=== PATIENT | male | born 1960 | race Caucasian/White ===

== ENCOUNTER 2023-12-27 08:29 | Emergency (ER) | payer MEDICARE, MEDICAID, SELFPAY ==
[2023-12-27] VITALS (25 sets, daily range): BP systolic 130–164; BP diastolic 80–113; PULSE 75–102; TEMP 36.9; O2SAT 93–98; BMI 25.8
--- NOTE | 2023-12-27 09:02 | XR_ITS ---
The [address] [address] Patient Name: ANDRE DEL VALLE MRN: [id number] date: 1960 Sex: M Assigned Patient Location: ER Current Patient Location: ER Accession/Order Number: [id number] Exam Date: 12/27/2023 09:12 Report Date: 12/27/2023 09:40 At the request of: LIZBETH GONZALEZ Procedure: XR chest 1V EXAM: XR chest 1V HISTORY: . cough . COMPARISON: 02/15/2016 TECHNIQUE: Single view of the chest. FINDINGS: Heart and vascularity are unremarkable. Right lung is unremarkable. There is slight increased density in the left lung base. No consolidation is noted. Left upper lobe is unremarkable. Median sternotomy sutures are noted. EKG leads overlie the chest. XR/XR chest 1V Impression: Slight increased density in the left lung base which could represent atelectasis or an early infiltrate. No consolidation noted. Electronically authenticated by: FARRAH SHELL Date: 12/27/2023 09:40
--- NOTE | 2023-12-27 09:09 | ECG_ITS ---
The [facility] Test Date: 2023-12-27 Pat Name: ANDRE DEL VALLE Department: Room: - Gender: Male [employer] Installer: : 1960 Requested By: [id number] Order Number: [id number] Reading MD: DEVI NIEVES Measurements Intervals [place] Rate: 92 P: 7 CT: 164 QRS: 8 QRSD: 94 T: 22 QT: 358 QTc: 408 Interpretive Statements 1100 Sinus rhythm 2440 Incomplete right bundle branch block [address] depression 9130 borderline ECG No previous ECG available for comparison Electronically Signed On 12-27-2023 22:38:21 EDT by DEVI NIEVES
--- NOTE | 2023-12-27 09:09 | ED.GENADUL1 ---
HPI HPI - General Adult General Chief complaint: Abdominal Pain Stated complaint: SOB Time Seen by Provider: 12/27/23 08:57 Source: patient and family Mode of arrival: walk-in Limitations: no limitations History of Present Illness HPI narrative: The patient presented to us with a 1 week history of coughing productive of greenish sputum, he denies any history of smoking he also denies any nausea vomiting or any decreased p.o. intake, patient mentioned also that he has been having constipation for the last 3 days, complaining of lower abdominal pain mostly whenever he is moving or coughing The patient denies any fever or chills at the moment he also denies any chest pain although he does have some chest pain with coughing Patient also denies any runny nose and any sore throat and he does not want to be tested for COVID-19 Patient has been trying only cough drops for the last few days Related Data Previous Rx's ?Medication ?Instructions ?Recorded acetaminophen 650 mg 650 mg PO Q8H PRN pain #20 tabs 12/27/23 tablet,extended release (Tylenol 8 Hour) azithromycin 250 mg tablet See Rx Instructions PO .COMPLEX #6 12/27/23 tabs cephalexin 500 mg capsule 500 mg PO TID 7 days #21 caps 12/27/23 guaifenesin 600 mg tablet, 600 mg PO BID PRN cough #10 tabs 12/27/23 extended release 12 hr (Mucinex) Allergies Allergy/AdvReac Type Severity Reaction Status Date / Time No Known Drug Allergies Allergy Verified 12/27/23 08:49 Opioid HPI Opioid Management Most Recent Opioid Data: No Data to Display Review of Systems ROS Status of ROS 10 or more systems reviewed and unremarkable except as noted in history and below PFSH PFSH Social History Little interest or pleasure in doing things: not at all Feeling down, depressed, or hopeless: not at all Exam Narrative Exam Narrative: Nurses notes and vital signs reviewed and patient is not hypoxic. General: Well-appearing and in no apparent distress. Skin: Warm, dry, no pallor noted. No rash. Head: Normocephalic, atraumatic. Neck: Supple, non-tender. Eye: Pupils are equal, round and EOMI. No scleral icterus. Ears, Nose, Mouth, and Throat: TM are clear, no nasal mucosal hypertrophy. Oral mucosa is moist, no posterior oropharynx erythema, uvula is mid-line Cardiovascular: Regular Rate and Rhythm without murmur, gallop or rub. Respiratory: No accessory muscle use or respiratory distress. Lungs are clear to auscultation, no wheezing, rales or rhonchi Chest Wall: no tenderness Back: No midline thoracic or lumbar vertebral tenderness. No CVA tenderness Musculoskeletal: normal ROM, no calf or popliteal tenderness, no lower extremity edema/swelling GI: Abdomen is soft, non-distended. Normal bowel sounds. No masses appreciated. No tenderness to palpation. No rebound, guarding, or rigidity noted. Neurological: A&O x4. No cranial nerve dysfunction observed. No truncal ataxia. Moves all extremities. Sensation intact. Psychiatric: Cooperative and interactive. Normal mood and affect. Constitutional Vital Signs, click to edit/add: Last Vital Signs Temp 98.4 F 12/27/23 08:46 Pulse 87 12/27/23 09:10 Resp 18 12/27/23 09:10 BP 155/85 H 12/27/23 08:49 Pulse Ox 98 12/27/23 09:18 O2 Del Method Room Air 12/27/23 09:18 Course Vital Signs Vital signs: Vital Signs Temperature 98.4 F 12/27/23 08:46 Pulse Rate 94 H 12/27/23 08:46 Respiratory Rate 20 12/27/23 08:46 Blood Pressure 164/113 H 12/27/23 08:46 Pulse Oximetry 95 12/27/23 08:46 Oxygen Delivery Method Room Air 12/27/23 08:46 Temperature 98.4 F 12/27/23 08:46 Pulse Rate 87 12/27/23 09:10 Respiratory Rate 18 12/27/23 09:10 Blood Pressure 155/85 H 12/27/23 08:49 Pulse Oximetry 98 12/27/23 09:18 Oxygen Delivery Method Room Air 12/27/23 09:18 Medical Decision Making [facility] Narrative Medical decision making narrative: The patient CBC and chemistry showed no acute significant pathology The patient EKG showing sinus rhythm with a heart rate of [address] elevation or depression CAT scan of the abdomen pelvis showed no acute pathology and his chest x-ray shows possible infiltrate which is mostly secondary to pneumonia at the patient is presenting with possible pneumonia at the main diagnosis The patient pain in the abdomen mostly secondary to musculoskeletal as he mentioned it is associated with coughing The patient was treated in the ER with azithromycin started Mucinex as well as azithromycin and Keflex to go home The patient is to follow up with primary care physician in next 2-3 days or to return to the emergency department should any of the signs or symptoms worsen or new symptoms develop. The patient agrees with the following Diagnosis and Treatment plan and the patient will be discharged home. Lab Data Labs: Lab Results 12/27/23 Range/Units 08:57 WBC 9.0 (4.0-11.0) 10^3/uL RBC 4.87 (4.70-6.10) 10^6/uL Hgb 14.7 (14.0-18.0) g/dL Hct 43.2 (42.0-54.0) % MCV 88.7 (80.0-94.0) fL MCH 30.2 (25.9-34.0) pg MCHC 34.0 (29.9-35.2) g/dL RDW 12.7 (11.0-15.0) % Plt Count 224 (150-450) 10^3/uL MPV 9.3 L (9.5-13.5) fL Neut % (Auto) 65.0 (43.0-75.0) % Lymph % (Auto) 19.0 L (20.5-60.0) % [place] % (Auto) 10.6 (1.7-12.0) % Eos % (Auto) 4.6 (0.9-7.0) % Baso % (Auto) 0.6 (0.2-2.0) % Neut # (Auto) 5.8 (1.4-6.5) 10^3/uL Lymph # (Auto) 1.7 (1.2-3.8) 10^3/uL [place] # (Auto) 1.0 H (0.3-0.8) 10^3/uL Eos # (Auto) 0.4 (0.0-0.7) 10^3/uL Baso # (Auto) 0.1 (0.0-0.1) 10^3/uL Abs Immat Gran (auto) 0.02 (0.00-0.03) 10^3/uL Imm/Tot Granulo (auto) 0.2 (0.0-0.5) % Sodium 136 (136-145) mmol/L Potassium 3.4 L (3.5-5.1) mmol/L Chloride 101 (98-107) mmol/L Carbon Dioxide 26.5 (21.0-32.0) mmol/L Anion Gap 11.9 BUN 20.0 H (7.0-18.0) mg/dL Creatinine 1.17 (0.70-1.30) mg/dL Est GFR ( Amer) >60 (>=60) Est GFR (Non-Af Amer) >60 (>=60) BUN/Creatinine Ratio 17.1 Glucose 120 H (74-106) mg/dL Calcium 9.1 (8.5-10.1) mg/dL Total Bilirubin 0.9 (0.2-1.0) mg/dL AST 29 (15-37) U/L ALT 34 (16-63) U/L Alkaline Phosphatase 102 (46-116) U/L Total Protein 8.0 (6.4-8.2) g/dL Albumin 3.7 (3.4-5.0) g/dL Globulin 4.3 g/dL Albumin/Globulin Ratio 0.9 Discharge Plan Discharge Chief Complaint: Abdominal Pain Clinical Impression: Abdominal wall pain Pneumonia Qualifiers: Pneumonia type: due to unspecified organism Laterality: left Lung location: unspecified part of lung Qualified Code(s): J18.9 - Pneumonia, unspecified organism Patient Disposition: Home, Self-Care Time of Disposition Decision: 10:48 Condition: Good Prescriptions / Home Meds: New cephalexin 500 mg capsule 500 mg PO TID 7 Days Qty: 21 0RF azithromycin 250 mg tablet See Rx Instructions .ROUTE .COMPLEX Qty: 6 0RF Rx Instructions: For 250 mg dose pack: take 500 mg today (day 1), then 250 mg for 4 days (days 2-5) acetaminophen [Tylenol 8 Hour] 650 mg tablet extended release 650 mg PO Q8H PRN (Reason: pain) Qty: 20 0RF guaifenesin [Mucinex] 600 mg tablet extended release 12hr 600 mg PO BID PRN (Reason: cough) Qty: 10 0RF Print Language: Green[place]ic Instructions: Community Acquired Pneumonia (DC), Abdominal Pain (ED) Referrals: Physician,Non-Staff, MD [Primary Care Provider] - 1 week
[2023-12-27] MEDS: IPRATROPIUM/ALBUTEROL SULFATE 3 ML AMPUL.NEB IH (09:17)
[2023-12-27 09:27] LABS: Basophils Absolute Auto 0.1 10^3/uL (0.0-0.1); Basophils Percent Auto 0.6 % (0.2-2.0); Eosinophils Absolute Auto 0.4 10^3/uL (0.0-0.7); Eosinophils Percent Auto 4.6 % (0.9-7.0); Hematocrit 43.2 % (42.0-54.0); Hemoglobin 14.7 g/dL (14.0-18.0); Immature Granulocytes Abs Auto 0.02 10^3/uL (0.00-0.03); Immature Granulocytes Pct Auto 0.2 % (0.0-0.5); Lymphocytes Absolute Auto 1.7 10^3/uL (1.2-3.8); Mean Corpuscular Hemoglobin 30.2 pg (25.9-34.0); Mean Corpuscular Volume 88.7 fL (80.0-94.0); Mean Platelet Volume 9.3 fL (9.5-13.5); Monocytes Percent Auto 10.6 % (1.7-12.0); Neutrophils Absolute Auto 5.8 10^3/uL (1.4-6.5); Platelet Count 224 10^3/uL (150-450); Red Blood Count 4.87 10^6/uL (4.70-6.10); Red Cell Distribution Width 12.7 % (11.0-15.0)
[2023-12-27] MEDS: KETOROLAC TROMETHAMINE 30 MG/ML VIAL 15 MG IVP (09:41)
--- NOTE | 2023-12-27 09:41 | CT_ITS ---
[address] [address] Patient Name: ANDRE DEL VALLE MRN: [id number] date: 1960 Sex: M Assigned Patient Location: ER Current Patient Location: ER Accession/Order Number: [id number] Exam Date: 12/27/2023 09:32 Report Date: 12/27/2023 10:09 At the request of: LIZBETH GONZALEZ Procedure: CT abdomen pelvis wo con EXAMINATION: CT abdomen pelvis wo con HISTORY: lower abd pain COMPARISON: No relevant comparison available. TECHNIQUE: Axial, Coronal, and Sagittal images were created without IV contrast. Dose reduction techniques were achieved by using automated exposure control and/or adjustment of mA and/or kV according to patient size and/or use of iterative reconstruction technique. FINDINGS: LUNG BASES: The right lung bases clear. Focal infiltrate in the left lower lobe with peribronchial thickening LIVER: No enlargement, atrophy, abnormal density, or significant focal lesion. BILIARY: No dilatation or calcification. PANCREAS: No lesion, fluid collection, ductal dilatation, or atrophy. SPLEEN: No enlargement or focal lesion. ADRENALS: No mass or enlargement. KIDNEYS: No mass, obstruction, or calcification. BOWEL/MESENTERY: No visible mass, obstruction, or bowel wall thickening. [place] appendix AORTA/VASCULAR: No aortic aneurysm. Moderate calcific atherosclerosis RETROPERITONEUM: No mass or adenopathy. LYMPH NODES: No adenopathy. URINARY BLADDER: No visible focal wall thickening, lesion, or calculus. PELVIC ORGANS: Mildly enlarged prostate gland with calcifications measuring 4.9 cm transversely ABDOMINAL WALL: No mass or hernia. BONES: No bony lesion or fracture. OTHER: Negative. CT/CT abdomen pelvis wo con IMPRESSION: No obstructive uropathy Electronically authenticated by: FARRAH PENA Date: 12/27/2023 10:09
[2023-12-27 09:42] LABS: Alanine Aminotransferase 34 U/L (16-63); Albumin Globulin Ratio 0.9; Albumin Level 3.7 g/dL (3.4-5.0); Alkaline Phosphatase 102 U/L (46-116); Anion Gap 11.9; Aspartate Amino Transferase 29 U/L (15-37); BUN Creatinine Ratio 17.1; Bilirubin Total 0.9 mg/dL (0.2-1.0); Calcium 9.1 mg/dL (8.5-10.1); Carbon Dioxide 26.5 mmol/L (21.0-32.0); Chloride 101 mmol/L (98-107); Estimated GFR (African America >60 (>=60); Estimated GFR (Non-African Ame >60 (>=60); Globulin 4.3 g/dL; Glucose 120 mg/dL (74-106); Potassium 3.4 mmol/L (3.5-5.1); Sodium 136 mmol/L (136-145)
[2023-12-27] MEDS: AZITHROMYCIN 500 MG in 0.9 % SODIUM CHLORIDE 250 ML 250 MG IV (10:57)
[2023-12-27] MEDS: METHYLPREDNISOLONE SOD SUCC PF 40 MG/ML VIAL IVP (10:57)
== END 2023-12-27 12:10 | disposition home or self-care (01) ==
PROVIDERS: Emergency Provider Emergency Medicine
DX: J18.9 Pneumonia, unspecified organism (principal); R10.9 Unspecified abdominal pain
CPT/HCPCS: 36415; 71045; 74176; 80053; 85025; 93005; 94640; 96365; 96375; 99285; J0456; J1885; J2919